=== PATIENT | female | born 1940 | race Caucasian/White ===

== ENCOUNTER 2016-10-04 11:06 | Emergency (ER) | payer OTHER ==
[~2016-10-04] VITALS: Ht 170.2 cm; Wt 56.7 kg
[2016-10-04 14:42] VITALS: BP 141/95
== END 2016-10-04 14:45 | disposition home or self-care (01) ==
LOC: ED 11:06
DX: S63.283A Dislocation of proximal interphalangeal joint of left middle finger, initial encounter (principal); I10 Essential (primary) hypertension; G20 Parkinson's disease; Z98.890 Other specified postprocedural states; W01.0XXA Fall on same level from slipping, tripping and stumbling without subsequent striking against object, initial encounter; Y93.89 Activity, other specified; Y99.8 Other external cause status; Y92.89 Other specified places as the place of occurrence of the external cause
CPT/HCPCS: A4570